=== PATIENT | female | born 1965 | race Asian ===

== ENCOUNTER → 2021-06-29 | Outpatient (CLI) | payer SELFPAY ==
[2021-06-29 12:22] LABS: BASOPHILS ABSOLUTE AUTO 0.04 K/mm3 (0.00-0.23); BASOPHILS PERCENT AUTO 1 % (0-2); EOSINOPHILS ABSOLUTE AUTO 0.06 K/mm3 (0.00-0.68); EOSINOPHILS PERCENT AUTO 1 % (0-6); Hematocrit 40.7 % (33.0-51.0); Hemoglobin 14.5 g/dL (11.5-16.0); IMMATURE GRAN ABSOLUTE AUTO 0.03 K/mm3 (0.00-0.10); IMMATURE GRAN PERCENT AUTO 0 % (0-1); LYMPHOCYTES ABSOLUTE AUTO 1.19 K/mm3 (0.84-5.20); LYMPHOCYTES PERCENT AUTO 16 % (21-46); MONOCYTES ABSOLUTE AUTO 0.96 K/mm3 (0.16-1.47); MONOCYTES PERCENT AUTO 13 % (4-13); Mean Corpuscular HGB 29.8 pg (26.0-34.0); Mean Corpuscular HGB Conc 35.6 g/dL (31.5-36.5); Mean Corpuscular Volume 84 fL (80-100); Mean Platelet Volume 9.1 fL (9.1-12.4); NEUTROPHILS ABSOLUTE AUTO 5.42 K/mm3 (1.96-9.15); NEUTROPHILS PERCENT AUTO 70 % (41-73); Platelet Count 292 K/mm3 (150-400); RDW Coefficient Variation 11.9 % (11.7-14.2); RDW Standard Deviation 35.9 fL (35.1-46.3); Red Blood Cell Count 4.86 M/mm3 (3.80-5.20)
[2021-06-29 13:02] LABS: Alanine Aminotransfer (ALT/SGP 21 U/L (12-78); Albumin, Blood 4.2 g/dL (3.4-5.0); Albumin/Globulin Ratio 1.2 (0.8-1.8); Alk Phos 56 U/L (50-136); Anion Gap 11 mmol/L (6-16); Aspartate Aminotrans (AST/SGOT 19 U/L (12-37); Blood Urea Nitrogen 8 mg/dL (8-24); CO2, Blood 27 mmol/L (21-32); Calcium, Blood 9.5 mg/dL (8.5-10.1); Chloride, Blood 86 mmol/L (98-108); Creatinine, Blood 0.73 mg/dL (0.40-1.00); Globulin, Blood 3.5 g/dL (2.2-4.0); Glomerular Filtration Rate >60 (60-); Glucose, Blood 105 mg/dL (70-99); Potassium, Blood 3.6 mmol/L (3.5-5.5); Sodium, Blood 124 mmol/L (136-145); Total Protein, Blood 7.7 g/dL (6.4-8.2)
== END ==
LOC: LAB SHORT 11:15
PROVIDERS: Physician Assistant
DX: R42 Dizziness and giddiness (principal)
CPT/HCPCS: 80053; 84443; 85025

== ENCOUNTER → 2021-07-01 | Outpatient (CLI) | payer BC ==
[2021-07-01 19:55] LABS: Anion Gap 7 mmol/L (6-16); Blood Urea Nitrogen 9 mg/dL (8-24); Bun/Creatinine Ratio 11.4 (12.0-20.0); CO2, Blood 29 mmol/L (21-32); Calcium, Blood 8.7 mg/dL (8.5-10.1); Chloride, Blood 92 mmol/L (98-108); Creatinine, Blood 0.79 mg/dL (0.40-1.00); Glomerular Filtration Rate >60 (60-); Glucose, Blood 205 mg/dL (70-99); Potassium, Blood 3.3 mmol/L (3.5-5.5); Sodium, Blood 128 mmol/L (136-145)
== END | disposition home or self-care (01) ==
LOC: LAB SHORT 17:38
PROVIDERS: Hospitalist
DX: E87.1 Hypo-osmolality and hyponatremia (principal)
CPT/HCPCS: 80048

== ENCOUNTER → 2021-07-23 | Outpatient (CLI) | payer BC ==
[2021-07-23 16:19] LABS: Anion Gap 6 mmol/L (6-16); Blood Urea Nitrogen 13 mg/dL (8-24); CO2, Blood 30 mmol/L (21-32); Calcium, Blood 8.9 mg/dL (8.5-10.1); Chloride, Blood 106 mmol/L (98-108); Creatinine, Blood 0.76 mg/dL (0.40-1.00); Glomerular Filtration Rate >60 (60-); Glucose, Blood 97 mg/dL (70-99); Potassium, Blood 3.6 mmol/L (3.5-5.5); Sodium, Blood 142 mmol/L (136-145)
== END | disposition home or self-care (01) ==
LOC: LAB SHORT 10:10
PROVIDERS: Hospitalist
DX: E87.1 Hypo-osmolality and hyponatremia (principal); E87.6 Hypokalemia
CPT/HCPCS: 80048

== ENCOUNTER → 2022-11-03 | Outpatient (CLI) | payer BC ==
[2022-11-03 14:24] LABS: Sodium, Urine 62 mmol/L (20-110)
== END | disposition home or self-care (01) ==
LOC: LAB 10:00 → LAB SHORT 10:00
PROVIDERS: Internal Medicine Endocrinology, Diabetes & Metabolism
DX: E26.9 Hyperaldosteronism, unspecified (principal)
CPT/HCPCS: 81050; 84300

== ENCOUNTER → 2022-11-24 | Outpatient (CLI) | payer BC ==
[2022-11-24 12:34] LABS: Sodium, Urine 66 mmol/L (20-110)
== END ==
LOC: LAB 06:45 → LAB SHORT 06:45
PROVIDERS: Internal Medicine Endocrinology, Diabetes & Metabolism
DX: E26.9 Hyperaldosteronism, unspecified (principal)
CPT/HCPCS: 81050; 84300

== ENCOUNTER 2023-03-27 21:40 | Inpatient (IN) | payer BC ==
[~2023-03-27] VITALS: Ht 157.5 cm; Wt 56.1 kg
[2023-03-27 22:38] LABS: Albumin, Blood 4.4 g/dL (3.4-5.0); Albumin/Globulin Ratio 1.3 (0.8-1.8); Bilirubin, Total 1.9 mg/dL (0.1-1.0); Bun/Creatinine Ratio 18.3 (12.0-20.0); Calcium, Blood 8.5 mg/dL (8.5-10.1); Creatinine, Blood 0.66 mg/dL (0.40-1.00); Globulin, Blood 3.4 g/dL (2.2-4.0); Potassium, Blood 3.3 mmol/L (3.5-5.5); Total Protein, Blood 7.8 g/dL (6.4-8.2)
[2023-03-27 22:47] LABS: BASOPHILS ABSOLUTE AUTO 0.01 K/mm3 (0.00-0.23); BASOPHILS PERCENT AUTO 0 % (0-2); EOSINOPHILS ABSOLUTE AUTO 0.01 K/mm3 (0.00-0.68); EOSINOPHILS PERCENT AUTO 0 % (0-6); Hematocrit 40.4 % (33.0-51.0); Hemoglobin 14.9 g/dL (11.5-16.0); IMMATURE GRAN ABSOLUTE AUTO 0.05 K/mm3 (0.00-0.10); IMMATURE GRAN PERCENT AUTO 0 % (0-1); LYMPHOCYTES ABSOLUTE AUTO 1.26 K/mm3 (0.84-5.20); LYMPHOCYTES PERCENT AUTO 11 % (21-46); MONOCYTES ABSOLUTE AUTO 1.07 K/mm3 (0.16-1.47); MONOCYTES PERCENT AUTO 9 % (4-13); Mean Corpuscular HGB Conc 36.9 g/dL (31.5-36.5); Mean Corpuscular Volume 79 fL (80-100); NEUTROPHILS PERCENT AUTO 79 % (41-73); Platelet Count 290 K/mm3 (150-400); RDW Coefficient Variation 10.8 % (11.7-14.2); RDW Standard Deviation 30.7 fL (35.1-46.3); Red Blood Cell Count 5.14 M/mm3 (3.80-5.20)
[2023-03-27] MEDS ORDERED: LOSA50 PO (23:04)
[2023-03-27] MEDS ORDERED: TOPROL XL50 MG PO (23:04)
[2023-03-27] MEDS ORDERED: CHLO25B PO (23:04)
[2023-03-28 00:21] VITALS: BP 150/95
--- NOTE | 2023-03-28 00:49 | NUR ---
ARRIVAL TO UNIT/ASSUMPTION OF CARE AFTER RECEIVING REPORT FROM ED RN, PATIENT ARRIVED TO UNIT VIA GURNEY AT APPROX 1215. PATIENT ABLE TO AMBULATE WITH STAND BY ASSIST FROM ED GURNEY TO RESTROOM TO VOID. AMBULATED TO BED WITH CONTINUED STAND BY ASSIST. PATIENT IS ALERT AND ORIENTED X4. PLEASANT, RECEPTIVE TO EDUCATION. AT BEDSIDE FOR ADMISSION PROCESS, HAS SINCE GONE HOME. VSS. TELEMETRY SHOWING SINUS 70's. BP ELEVATED, SBP 150's. KNOWN HISTORY OF HYPERTENSION. ON ROOM AIR, SATS >92%. REQUESTING PO MEDICATION TO HELP SLEEP, ADMINISTERED PO TEMAZAPAM PER EMAR. CALL LIGHT IN REACH.
[2023-03-28 04:10] VITALS: BP 116/84
--- NOTE | 2023-03-28 04:57 | NUR ---
SHIFT SUMMARY NO ACUTE CHANGES SINCE ASSUMPTION OF CARE NOTE. PATIENT SLEPT PERIODICALLY THROUGHOUT, EASILY AROUSABLE TO VERBAL STIMULI. VS REMAIN STABLE. TELEMETRY CONTINUING TO SHOW SINUS 60's-70's. REMAINS ON ROOM AIR. IVF INFUSING PER EMAR. UP TO RESTROOM WITH STAND BY ASSIST. VOIDING. CALL LIGHT IN REACH. WILL REPORT TO ONCOMING RN.
[2023-03-28 05:16] LABS: Calcium, Blood 8.1 mg/dL (8.5-10.1); Creatinine, Blood 0.72 mg/dL (0.40-1.00); Potassium, Blood 2.5 mmol/L (3.5-5.5)
--- NOTE | 2023-03-28 05:22 | NUR ---
RECEIVED CALL FROM HEMATOLOGY WITH CRITICAL LAB VALUE SODIUM 117. TRENDING UP IN EXPECTED DIRECTION PREVIOUS VALUE, 113. NO CHANGE IN PATIENT CONDITION. DISCUSSED WITH CONSTRUCTION SECRETARY HELIO. WILL REPORT UPDATE TO ONCOMING RN.
[2023-03-28 07:26] VITALS: BP 131/81
[2023-03-28 15:36] LABS: Albumin, Blood 3.6 g/dL (3.4-5.0); Anion Gap 8 mmol/L (6-16); Blood Urea Nitrogen 10 mg/dL (8-24); Bun/Creatinine Ratio 15.4 (12.0-20.0); CO2, Blood 28 mmol/L (21-32); Calcium, Blood 8.1 mg/dL (8.5-10.1); Chloride, Blood 85 mmol/L (98-108); Creatinine, Blood 0.65 mg/dL (0.40-1.00); Glomerular Filtration Rate 101 (60-); Glucose, Blood 103 mg/dL (70-99); Phosphorus, Blood 2.7 mg/dL (2.5-4.9); Potassium, Blood 2.9 mmol/L (3.5-5.5); Sodium, Blood 121 mmol/L (136-145)
[2023-03-28 16:00] VITALS: BP 133/92
--- NOTE | 2023-03-28 17:35 | NUR ---
SHIFT SUMMARY/TRANSFER: PT HAS BEEN A&Ox4, ANSWERS QUESTIONS APPROPRIATELY, ABLE TO MAKE NEEDS KNOWN. PT REPORTS CONTINUED LIGHTHEADEDNESS AT REST AND W/AMBULATION, MEDICATED x1 THIS AM FOR C/O MILD HEADACHE. PT HAS BEEN SBA TO RESTROOM, TOLERATING WELL. PT DENIES SOB, O2 SATS >93% ON RA. PT DENIES CP, SR ON MONITOR, RATE 70s, VS STABLE. 3rd LITER OF NS INFUSING PER ORDERS, PT PROVIDED W/K+ REPLACEMENT PER ORDERS. PT RECEIVES NEW ROOM ASSIGNMENT IN MEDICAL DEPT. WAITING TO GIVE REPORT TO RECEIVING RN, THEN PT WILL BE TRANSFERED.
--- NOTE | 2023-03-28 18:19 | NUR ---
1815- PT CAME TO FLOOR FROM PCU 4 AFTER RN RECEIVED REPORT FROM [employer] LIBRARY TECHNICAL ASSISTANT.
[2023-03-28 19:27] VITALS: BP 120/80
[2023-03-28 22:59] LABS: Albumin, Blood 3.5 g/dL (3.4-5.0); Anion Gap 7 mmol/L (6-16); Blood Urea Nitrogen 10 mg/dL (8-24); Bun/Creatinine Ratio 16.2 (12.0-20.0); CO2, Blood 28 mmol/L (21-32); Calcium, Blood 8.2 mg/dL (8.5-10.1); Chloride, Blood 91 mmol/L (98-108); Creatinine, Blood 0.62 mg/dL (0.40-1.00); Glomerular Filtration Rate 103 (60-); Glucose, Blood 102 mg/dL (70-99); Phosphorus, Blood 2.2 mg/dL (2.5-4.9); Potassium, Blood 3.1 mmol/L (3.5-5.5); Sodium, Blood 126 mmol/L (136-145)
--- NOTE | 2023-03-29 00:03 | NUR ---
PATIENT RESTING, RESPS EVEN AND NONLABORED, REQUESTED RESTORIL EALIER IN THE EVENING, PATIENT SLEEPING NOW, CALL LIGHT WITH IN REACH
[2023-03-29 05:17] VITALS: BP 126/81
[2023-03-29 05:22] LABS: BASOPHILS ABSOLUTE AUTO 0.03 K/mm3 (0.00-0.23); BASOPHILS PERCENT AUTO 1 % (0-2); EOSINOPHILS ABSOLUTE AUTO 0.06 K/mm3 (0.00-0.68); EOSINOPHILS PERCENT AUTO 1 % (0-6); Hematocrit 36.8 % (33.0-51.0); Hemoglobin 13.2 g/dL (11.5-16.0); IMMATURE GRAN ABSOLUTE AUTO 0.02 K/mm3 (0.00-0.10); IMMATURE GRAN PERCENT AUTO 0 % (0-1); LYMPHOCYTES ABSOLUTE AUTO 1.57 K/mm3 (0.84-5.20); LYMPHOCYTES PERCENT AUTO 26 % (21-46); MONOCYTES ABSOLUTE AUTO 1.41 K/mm3 (0.16-1.47); MONOCYTES PERCENT AUTO 24 % (4-13); Mean Corpuscular HGB 28.9 pg (26.0-34.0); Mean Corpuscular HGB Conc 35.9 g/dL (31.5-36.5); Mean Corpuscular Volume 81 fL (80-100); Mean Platelet Volume 9.2 fL (9.1-12.4); NEUTROPHILS ABSOLUTE AUTO 2.92 K/mm3 (1.96-9.15); NEUTROPHILS PERCENT AUTO 49 % (41-73); Platelet Count 248 K/mm3 (150-400); RDW Coefficient Variation 11.4 % (11.7-14.2); RDW Standard Deviation 33.1 fL (35.1-46.3); Red Blood Cell Count 4.57 M/mm3 (3.80-5.20); White Blood Cell Count 6.01 K/mm3 (4.00-11.30)
--- NOTE | 2023-03-29 05:32 | NUR ---
NO ACUTE CHANGES, PATIENT REPORTS SLEEPING THROUGH OUT THE NIGHT, MAKES NEEDS KNOWN, INDEPEDENT IN ROOM, PLEASANT TO CARE, CALL LIGHT WITH IN REACH, WILL RELAY TO PM RN
[2023-03-29 06:07] LABS: Albumin, Blood 3.5 g/dL (3.4-5.0); Anion Gap 6 mmol/L (6-16); Blood Urea Nitrogen 8 mg/dL (8-24); CO2, Blood 27 mmol/L (21-32); Calcium, Blood 8.4 mg/dL (8.5-10.1); Chloride, Blood 97 mmol/L (98-108); Creatinine, Blood 0.73 mg/dL (0.40-1.00); Glomerular Filtration Rate 95 (60-); Glucose, Blood 94 mg/dL (70-99); Phosphorus, Blood 2.4 mg/dL (2.5-4.9); Potassium, Blood 3.1 mmol/L (3.5-5.5); Sodium, Blood 130 mmol/L (136-145)
[2023-03-29 07:46] VITALS: BP 116/81
== END 2023-03-29 11:21 | disposition home or self-care (01) | DRG 641 ==
LOC: ER 21:40 → PCU 21:41 → ER 23:34 → MEDS 23:34 → PCU 23:34 → MEDS 03-28 00:13 → PCU 03-28 00:13 → MEDS 03-28 15:01 → PCU 03-28 15:02 → MEDS 03-28 18:11
PROVIDERS: Internal Medicine; Physician Assistant; ADMIT Hospitalist
DX: E87.1 Hypo-osmolality and hyponatremia (principal); T50.2X5A Adverse effect of carbonic-anhydrase inhibitors, benzothiadiazides and other diuretics, initial encounter; I10 Essential (primary) hypertension; G47.00 Insomnia, unspecified; E87.6 Hypokalemia; E83.39 Other disorders of phosphorus metabolism
CPT/HCPCS: 36415; 80048; 80053; 80069; 83735; 85025; 93005; 93010; 96360; 99285-25; A9270; G0378; J7030

== ENCOUNTER 2024-11-10 21:07 | Emergency (ER) | payer OTHER ==
[~2024-11-10] VITALS: Ht 165.1 cm; Wt 59.0 kg
[~2024-11-10 21:07] MED LIST: CHLO25B PO; LOSA50 PO; TOPROL XL50 MG PO
[2024-11-10 21:51] LABS: BASOPHILS ABSOLUTE AUTO 0.04 K/mm3 (0.00-0.23); BASOPHILS PERCENT AUTO 0 % (0-2); EOSINOPHILS ABSOLUTE AUTO 0.46 K/mm3 (0.00-0.68); EOSINOPHILS PERCENT AUTO 5 % (0-6); Hematocrit 39.8 % (33.0-51.0); Hemoglobin 13.5 g/dL (11.5-16.0); IMMATURE GRAN ABSOLUTE AUTO 0.03 K/mm3 (0.00-0.10); IMMATURE GRAN PERCENT AUTO 0 % (0-1); LYMPHOCYTES ABSOLUTE AUTO 2.34 K/mm3 (0.84-5.20); LYMPHOCYTES PERCENT AUTO 23 % (21-46); MONOCYTES ABSOLUTE AUTO 0.87 K/mm3 (0.16-1.47); MONOCYTES PERCENT AUTO 9 % (4-13); Mean Corpuscular HGB Conc 33.9 g/dL (31.5-36.5); Mean Corpuscular Volume 85 fL (80-100); NEUTROPHILS ABSOLUTE AUTO 6.25 K/mm3 (1.96-9.15); NEUTROPHILS PERCENT AUTO 63 % (41-73); NRBC ABSOLUTE 0.00 K/mm3 (0.00-0.02); NRBC Auto 0.0 /100 WBC (0.0-0.2); Platelet Count 292 K/mm3 (150-400); RDW Coefficient Variation 11.9 % (11.7-14.2); RDW Standard Deviation 36.7 fL (35.1-46.3)
[2024-11-10 22:10] LABS: Alanine Aminotransfer (ALT/SGP 22.0 U/L (12-78); Albumin, Blood 3.8 g/dL (3.4-5.0); Albumin/Globulin Ratio 1.0 (0.8-1.8); Anion Gap 11.0 mmol/L (3-11); Aspartate Aminotrans (AST/SGOT 23.0 U/L (12-37); Bilirubin, Total 0.4 mg/dL (0.1-1.0); Blood Urea Nitrogen 13.0 mg/dL (8-24); CO2, Blood 27.0 mmol/L (21-32); Calcium, Blood 9.0 mg/dL (8.5-10.1); Chloride, Blood 101.0 mmol/L (98-108); Creatinine, Blood 0.81 mg/dL (0.40-1.00); Globulin, Blood 3.9 g/dL (2.2-4.0); Glucose, Blood 119.0 mg/dL (70-99); Potassium, Blood 3.8 mmol/L (3.5-5.5); Sodium, Blood 135.0 mmol/L (136-145); Total Protein, Blood 7.7 g/dL (6.4-8.2)
[2024-11-10 23:16] VITALS: BP 151/101
== END 2024-11-10 23:22 | disposition home or self-care (01) ==
LOC: ER 21:07
PROVIDERS: Student in an Organized Health Care Education/Training Program
DX: I10 Essential (primary) hypertension (principal); Z79.899 Other long term (current) drug therapy; Z88.8 Allergy status to other drugs, medicaments and biological substances
CPT/HCPCS: 80053; 84484; 85025; 93005; 93010; 99283-25

== ENCOUNTER → 2024-11-12 | Outpatient (CLI) | payer OTHER | LOC: LAB 14:45 → LAB SHORT 14:45 | DX: I10 Essential (primary) hypertension (principal) | CPT/HCPCS: 82533; 84443 ==